=== PATIENT | male | born 1950 | race Two or more races ===

== ENCOUNTER 2019-08-29 16:46 | Emergency (ER) | payer MEDICARE, MEDICAID ==
[~2019-08-29] VITALS: Ht 170.2 cm; Wt 71.2 kg
[2019-08-29 17:25] LABS: BASOPHILS # (AUTO) 0.1 /CMM (0.0-0.2); BASOPHILS % (AUTO) 1.1 % (0.0-2.0); EOSINOPHILS % (AUTO) 3.8 % (0.0-6.0); HEMATOCRIT 32 % (39-51); HEMOGLOBIN 10.5 g/dL (13.5-17.5); LYMPHOCYTES # (AUTO) 1.6 /CMM (0.8-4.8); MEAN CORPUSCULAR HGB CONC 33 g/dl (31.0-36.0); MEAN CORPUSCULAR VOLUME 97 fL (80-96); MONOCYTES # (AUTO) 0.5 /CMM (0.1-1.30); MONOCYTES % (AUTO) 10.2 % (2.0-12.0); NEUTROPHILS # (AUTO) 2.4 /CMM (1.8-8.9); NEUTROPHILS % (AUTO) 50.9 % (43.0-81.0); PLATELET COUNT (AUTO) 210 /CMM (150-450); RED BLOOD CELL COUNT(AUTO) 3.29 MIL/uL (4.5-6.0); WHITE BLOOD COUNT (AUTO) 4.8 K/uL (4.3-11.0)
--- NOTE | 2019-08-29 17:31 | NUR ---
[facility]IB [facility],C/O DIZZINESS/GLF AND LOW BP=70/40. ON ROOM AIR, BREATHING EVENLY AND UNLABORED. CONNECTED TO THE MONITOR AND PULSE OX. WILL CONTINUE TO MONITOR ACCORDINGLY.
[2019-08-29 17:33] LABS: CALCIUM, SERUM 8.3 mg/dL (8.5-10.1); CREATININE 1.7 mg/dL (0.6-1.3); POTASSIUM 4.3 mmol/L (3.5-5.1)
[2019-08-29] MEDS ORDERED: IV NS 0.9% 500 ML BAG IV ONE (18:30)
--- NOTE | 2019-08-29 18:30 | NUR ---
CALLED [facility] FOR BLS [facility]OD [facility]. [id number] TRIP #[id number]
[2019-08-29 18:31] VITALS: BP 147/76
--- NOTE | 2019-08-29 19:50 | NUR ---
REPORT GIVEN TO AMBULANCE EMT
== END 2019-08-29 20:59 | disposition home or self-care (01) ==
LOC: ER 16:46
DX: E86.0 Dehydration (principal); R42 Dizziness and giddiness; I10 Essential (primary) hypertension; E11.9 Type 2 diabetes mellitus without complications; F32.9 Major depressive disorder, single episode, unspecified; Z98.890 Other specified postprocedural states
CPT/HCPCS: 36415; 80048; 82962; 85025; 93005; 96360; 99284; J7040

== ENCOUNTER 2019-09-10 10:54 | Emergency (ER) | payer MEDICARE, MEDICAID ==
[~2019-09-10] VITALS: Ht 167.6 cm; Wt 69.4 kg
[2019-09-10 11:18] VITALS: BP 130/71
[2019-09-10 11:45] LABS: BASOPHILS % (AUTO) 0.8 % (0.0-2.0); EOSINOPHILS % (AUTO) 2.6 % (0.0-6.0); HEMATOCRIT 33 % (39-51); HEMOGLOBIN 10.9 g/dL (13.5-17.5); LYMPHOCYTES # (AUTO) 1.8 /CMM (0.8-4.8); LYMPHOCYTES % (AUTO) 36.8 % (20.0-44.0); MEAN CORPUSCULAR HGB CONC 33 g/dl (31.0-36.0); MEAN CORPUSCULAR VOLUME 98 fL (80-96); MONOCYTES # (AUTO) 0.4 /CMM (0.1-1.30); MONOCYTES % (AUTO) 8.4 % (2.0-12.0); NEUTROPHILS # (AUTO) 2.5 /CMM (1.8-8.9); NEUTROPHILS % (AUTO) 51.4 % (43.0-81.0); PLATELET COUNT (AUTO) 226 /CMM (150-450); RED BLOOD CELL COUNT(AUTO) 3.41 MIL/uL (4.5-6.0); WHITE BLOOD COUNT (AUTO) 4.9 K/uL (4.3-11.0)
[2019-09-10] MEDS ORDERED: DULO60CA64 PO (11:48)
[2019-09-10] MEDS ORDERED: ATOR10TA PO (11:48)
[2019-09-10] MEDS ORDERED: RISP0.253 PO (11:48)
[2019-09-10] MEDS ORDERED: FURO40TA5 PO (11:48)
[2019-09-10] MEDS ORDERED: AMLO5TAB9 PO (11:48)
[2019-09-10] MEDS ORDERED: ESCI10TA PO (11:48)
[2019-09-10] MEDS ORDERED: METF-440 PO (11:48)
[2019-09-10] MEDS ORDERED: CARV12.52 PO (11:48)
[2019-09-10 11:52] LABS: POTASSIUM 4.5 mmol/L (3.5-5.1); SODIUM SERUM 135 mmol/L (136-145)
[2019-09-10 11:53] LABS: CHLORIDE 99 mmol/L (98-107)
[2019-09-10] MEDS ORDERED: ACETAMINOPHEN ES 500 MG TABLET PO ONE (12:00)
[2019-09-10 12:05] LABS: ALANINE AMINOTRANSFERASE 14 U/L (12-78); ALBUMIN 2.8 g/dL (3.4-5.0); ALKALINE PHOSPHATASE 116 U/L (46-116); ASPARTATE AMINOTRANSFERASE 12 U/L (15-37); BILIRUBIN,DIRECT 0.1 mg/dL (0.0-0.2); BILIRUBIN,TOTAL 0.3 mg/dL (0.2-1.0); CALCIUM, SERUM 8.8 mg/dL (8.5-10.1); CARBON DIOXIDE 33 mmol/L (21-32); CREATININE 1.9 mg/dL (0.6-1.3); TOTAL PROTEIN, SERUM 7.9 g/dL (6.4-8.2); UREA NITROGEN, BLOOD 48 mg/dL (7-18)
[2019-09-10 12:07] LABS: GLUCOSE 365 mg/dL (74-106)
[2019-09-10] MEDS ORDERED: ACETAMINOPHEN ES 500 MG TABLET ONE (12:41)
--- NOTE | 2019-09-10 13:56 | NUR ---
Patient awake alert noted able to ambulated to bathroom minimal asssist
--- NOTE | 2019-09-10 14:33 | NUR ---
ABDOUL HANEY TO [id number] TRIP#[id number]
--- NOTE | 2019-09-10 14:38 | NUR ---
moved patient alert agrees to follow up PMD in 2 days verbalized understnding SADA mccloud removed noted cath intact
--- NOTE | 2019-09-10 14:43 | NUR ---
Awaiting for ambulance ride home back to facility
--- NOTE | 2019-09-10 15:20 | NUR ---
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
== END 2019-09-10 16:00 | disposition home or self-care (01) ==
LOC: ER 10:54
DX: M54.5 Low back pain (principal); E11.9 Type 2 diabetes mellitus without complications; F32.9 Major depressive disorder, single episode, unspecified; Z79.899 Other long term (current) drug therapy; Z79.84 Long term (current) use of oral hypoglycemic drugs; W18.39XA Other fall on same level, initial encounter; Y93.89 Activity, other specified; Y92.89 Other specified places as the place of occurrence of the external cause; Y99.8 Other external cause status
CPT/HCPCS: 36415; 71045-TC; 72131-TC; 80048-TC; 80076-TC; 83605-TC; 84484-TC; 85025-TC; 87040-TC